=== PATIENT | female | born 1970 | race Caucasian/White ===

== ENCOUNTER 2019-11-02 01:46 | Inpatient (IN) | payer SELFPAY ==
[~2019-11-02] VITALS: Ht 160 cm; Wt 65.3 kg
[2019-11-02] VITALS (11 sets, daily range): BP systolic 103–151; BP diastolic 71–99
[2019-11-02] MEDS ORDERED: IV NORMAL SALINE 1000ML BAG 1,000 ML IV ONE (02:00)
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
[2019-11-02 02:11] LABS: BASO # 0.1 x10^3/uL (0.0-0.2); BASO % 1 % (0-3); EOS # 0.1 x10^3/uL (0.0-0.7); EOS % 1 % (0-3); HEMATOCRIT 38.7 % (36.0-47.0); HEMOGLOBIN 13.8 g/dL (12.0-15.5); LYMPH # 2.6 x10^3/uL (1.0-4.8); LYMPH % 24 % (24-48); MEAN CORPUSCULAR HEMOGLOBIN 32 pg (25-35); MEAN CORPUSCULAR HGB CONC 36 g/dL (31-37); MEAN CORPUSCULAR VOLUME 91 fL (79-100); MONO # 0.7 x10^3/uL (0.0-1.1); MONO % 7 % (0-9); NEUT # 7.3 x10^3/uL (1.8-7.7); NEUT % 68 % (31-73); PLATELET COUNT 327 x10^3/uL (140-400); RED BLOOD COUNT 4.26 x10^6/uL (3.50-5.40); RED CELL DISTRIBUTION WIDTH 12.7 % (11.5-14.5); WHITE BLOOD COUNT 10.7 x10^3/uL (4.0-11.0)
[2019-11-02] MEDS ORDERED: MORPHINE SULFATE 4 MG/ML VIAL. IV ONE ×2 (02:15→02:30)
[2019-11-02 02:19] LABS: CALCIUM 8.3 mg/dL (8.5-10.1); CREATININE 1.2 mg/dL (0.6-1.0); GFR 48.2; POTASSIUM 3.8 mmol/L (3.5-5.1)
[2019-11-02 02:25] LABS: ALBUMIN 3.4 g/dL (3.4-5.0); TOTAL BILIRUBIN 0.2 mg/dL (0.2-1.0); TOTAL PROTEIN 6.9 g/dL (6.4-8.2)
[2019-11-02 02:33] LABS: BILIRUBIN,URINE NEGATIVE (NEG); CLARITY,URINE CLOUDY; COLOR,URINE YELLOW; NITRITE,URINE POSITIVE (NEG); PH,URINE 6.5 (<5.0-8.0); PROTEIN,URINE 100 mg/dL (NEG-TRACE); UROBILINOGEN,URINE 0.2 mg/dL (0.2 mg/dL)
[2019-11-02 02:42] LABS: SQUAMOUS EPITHELIAL CELL,UR OCC /LPF
[2019-11-02 02:43] LABS: AMORPHOUS SEDIMENT,UR PRESENT /HPF; BACTERIA,URINE MODERATE /HPF (0-FEW)
[2019-11-02 02:44] LABS: U PREG PATIENT NEGATIVE (NEG)
--- NOTE | 2019-11-02 02:45 | RAD ---
Two-view left shoulder radiographs 11/02/2019 CLINICAL HISTORY: Left shoulder pain. AP and transscapular digital radiographs of the left shoulder were obtained. There appears to be an acute fracture involving the inferior aspect of the left humeral head/neck which is displaced slightly inferiorly. The humeral head appears to be dislocated posteriorly on the transscapular view. No additional fracture is seen. IMPRESSION: Fracture dislocation of the left shoulder as discussed above. Electronically signed by: Mark Anthony Douglas MD (11/02/2019 2:43 AM) [id number]
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
[2019-11-02] MEDS ORDERED: PROPOFOL 10 MG/ML (20ML) VIAL. IV ONE (03:00)
[2019-11-02] MEDS ORDERED: cefTRIAXone IV Push 1 GM VIAL. IVP ONE (03:45)
--- NOTE | 2019-11-02 04:23 | RAD ---
Two-view left shoulder radiographs 11/02/2019 CLINICAL HISTORY: Post reduction of a left shoulder dislocation. AP and transscapular digital radiographs left shoulder were obtained. Comparison study is dated earlier the same day at 0200 hours. The previously noted posterior dislocation of the left shoulder has been reduced. No fracture is seen. The questionable fracture of the inferior left humeral head seen on the previous study appears to have been artifactual. Mild degenerative changes are seen involving left AC joint. IMPRESSION: Interval reduction of the left shoulder as discussed above. No fracture is seen. Electronically signed by: Mark Anthony Douglas MD (11/02/2019 4:20 AM) [id number]
--- NOTE | 2019-11-02 04:42 | EKG ---
[facility] [address] [place] [address] Test Date: 2019-11-02 Test Time: 01:52:26 Pat Name: RADHA RUBALCAVA Department: Room: Gender: F Tree Surgeon Helper: : 1970 Requested By: JANEL PALOMO Order Number: [id number] Reading MD: Measurements Intervals Tiro Rate: 92 P: 57 ME: 172 QRS: 62 QRSD: 84 T: 58 QT: 340 QTc: 425 Interpretive Statements SINUS RHYTHM NO SPECIFIC ECG ABNORMALITIES RI6.01 No previous ECG available for comparison
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
[2019-11-02] MEDS ORDERED: HYDROcodone/APAP 5/325MG 1 TAB TABLET PO PRN ×2 (10:45→15:30)
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
[2019-11-02] MEDS ORDERED: ACETAMINOPHEN 325 MG TABLET. PO PRN (11:15)
[2019-11-02] MEDS ORDERED: 0.9 % SODIUM CHLORIDE 10 ML DISP.SYRIN. IV PRN (11:15)
[2019-11-02] MEDS ORDERED: guaiFENesin ORAL 200 MG/10 ML LIQUID. PO PRN (11:15)
[2019-11-02] MEDS ORDERED: DOCUSATE SODIUM 100 MG CAPSULE. PO PRN (11:15)
[2019-11-02] MEDS ORDERED: MAG HYDROX/ALUMINUM HYD/SIMETH 30 ML ORAL.SUSP PO PRN (11:15)
--- NOTE | 2019-11-02 11:31 | EKG ---
[facility] [address] [place] [address] Test Date: 2019-11-02 Test Time: 11:27:50 Pat Name: RADHA RUBALCAVA Department: Room: 102 1 Gender: F Wool Presser: EMILI : 1970 Requested By: GARTH ROSAS Order Number: [id number] Reading MD: Measurements Intervals [place] Rate: 86 P: 60 PA: 182 QRS: 63 QRSD: 80 T: 57 QT: 384 QTc: 463 Interpretive Statements SINUS RHYTHM OTHERWISE NORMAL ECG RI6.02 Compared to ECG 11/02/2019 01:52:26 No significant changes
[2019-11-02] MEDS ORDERED: MULTIVIT INFUSN,ADULT 4,VIT K 10 ML, THIAMINE INJ 100 MG, FOLIC ACID INJ 1 MG in IV NOR... IV ONE (12:00)
[2019-11-02] MEDS ORDERED: PANTOPRAZOLE IV PUSH 40 MG VIAL. IVP SCH (12:00)
--- NOTE | 2019-11-02 12:03 | NUR ---
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
--- NOTE | 2019-11-02 12:41 | PDOC1 ---
History and Physical Date of Admission Date of Admission DATE: 11/02/19 TIME: 12:20 Identification/Chief Complaint Chief Complaint ELECTROCUTION Problems: (1) Closed dislocation of humerus (2) Electrocution (3) Burn NOS finger w/ thumb (4) UTI (lower urinary tract infection) Source Source: Chart review, Patient History of Present Illness History of Present Illness 49 year old female with no significant PMHx presents with the chief complaint of right thumb pain and left shoulder pain. patient states prior to arrival she was electrocuted. she had grabbed her wood burning/engraving tool that is plug into the electrical sock and it shocked her. Device was made from an old microwave that has 2 wires coming off and the ends that are attached to auto jumper clamps. She state the silver ring on her right thumb came into contact the metal jumper clamp. Patient hand a ring on her right thumb that was burnt off. Patient has circumferential wound of her proximal right thumb. Patient is also complaining of left shoulder pain-- she states she can not move her left shoulder. Per EMS history patient has positive LOC and family performed 3 chest compressions. heavy alcohol intake by hx patient admitted to ICU. at bedside as well. burn center called and no further recommendations. patient currently asking to eat food. concern for UTI and started on Rocephin. shoulder dislocated and reduced in ED. Past Medical History Past Medical History reviewed and denies Past Surgical History Past Surgical History: No pertinent history Family History Family History: Hypertension, Family History Unknown Social History Smoke: No ALCOHOL: none Drugs: None Current Problem List Problem List Problems Medical Problems: (1) Burn NOS finger w/ thumb Status: Acute (2) Closed dislocation of humerus Status: Acute (3) Electrocution Status: Acute (4) Shoulder pain, left Status: Acute (5) UTI (lower urinary tract infection) Status: Acute Current Medications Current Medications Current Medications Sodium Chloride 1,000 ml @ 1,000 mls/hr 1X ONCE IV Last administered on 11/02/19at 02:04; Start 11/02/19 at 02:00; Stop 11/02/19 at 02:59; Status DC Morphine Sulfate (Morphine Sulfate) 4 mg 1X ONCE IV Last administered on 11/02/19at 02:14; Start 11/02/19 at 02:15; Stop 11/02/19 at 02:16; Status DC Lorazepam (Ativan Inj) 1 mg 1X ONCE IVP Last administered on 11/02/19at 02:32; Start 11/02/19 at 02:30; Stop 11/02/19 at 02:33; Status DC Morphine Sulfate (Morphine Sulfate) 4 mg 1X ONCE IV Last administered on 11/02/19at 02:32; Start 11/02/19 at 02:30; Stop 11/02/19 at 02:33; Status DC Propofol (Diprivan) 60 mg 1X ONCE IV Last administered on 11/02/19at 03:24; Start 11/02/19 at 03:00; Stop 11/02/19 at 03:03; Status DC Ceftriaxone Sodium (Rocephin) 1 gm 1X ONCE IVP Last administered on 11/02/19at 04:04; Start 11/02/19 at 03:45; Stop 11/02/19 at 03:46; Status DC Acetaminophen/ Hydrocodone Bitart (Lortab 5/325) 1 tab PRN Q4HRS PRN PO PAIN Last administered on 11/02/19at 11:42; Start 11/02/19 at 10:45 Ceftriaxone Sodium (Rocephin) 1 gm Q24H IVP ; Start 11/03/19 at 09:00 Lactobacillus Rhamnosus (Culturelle) 1 cap BID PO ; Start 11/02/19 at 21:00 Sodium Chloride (Normal Saline Flush) 3 ml QSHIFT PRN IV AFTER MEDS AND BLOOD DRAWS; Start 11/02/19 at 11:15 Multivitamins 10 ml/Thiamine HCl 100 mg/Folic Acid 1 mg/Sodium Chloride 1,011.2 ml @ 125 mls/ hr 1X ONCE IV Last administered on 11/02/19at 11:48; Start 11/02/19 at 12:00; Stop 11/02/19 at 20:05 Acetaminophen (Tylenol) 650 mg PRN Q4HRS PRN PO TEMP OVER 100.4F OR MILD PAIN; Start 11/02/19 at 11:15 Al Hydroxide/Mg Hydroxide (Mylanta Plus Xs) 30 ml PRN DAILY PRN PO HEARTBURN / GAS; Start 11/02/19 at 11:15 Docusate Sodium (Colace) 100 mg PRN BID PRN PO HARD STOOLS; Start 11/02/19 at 11:15 Albuterol/ Ipratropium (Duoneb) 3 ml Q4H NEB ; Start 11/02/19 at 11:15 Guaifenesin (Robitussin) 200 mg PRN Q4HRS PRN PO COUGH; Start 11/02/19 at 11:15 Enoxaparin Sodium (Lovenox 40mg Syringe) 40 mg Q24H SQ ; Start 11/02/19 at 12:00 Pantoprazole Sodium (PROTONIX VIAL for IV PUSH) 40 mg DAILYAC IVP ; Start 11/02/19 at 12:00 Multivitamins 10 ml/Thiamine HCl 100 mg/Folic Acid 1 mg/Sodium Chloride 1,011.2 ml @ 100 mls/ hr DAILY IV ; Start 11/03/19 at 09:00; Stop 11/06/19 at 19:07 Multivitamins (Thera M Plus) 1 tab DAILY PO ; Start 11/07/19 at 09:00 Folic Acid (Folic Acid) 1 mg DAILY PO ; Start 11/07/19 at 09:00 Thiamine Mononitrate (Vitamin B-1) 100 mg DAILY PO ; Start 11/07/19 at 09:00 Lorazepam (Ativan) 4 mg PRN Q1HR PRN PO For CIWA 8-14; Start 11/02/19 at 11:15 Lorazepam (Ativan) 8 mg PRN Q1HR PRN PO For CIWA 15 or greater; Start 11/02/19 at 11:15 Lorazepam (Ativan Inj) 2 mg PRN Q1HR PRN IV For CIWA 8-14; Start 11/02/19 at 11:15 Lorazepam (Ativan Inj) 4 mg PRN Q1HR PRN IV For CIWA 15 or greater; Start 11/02/19 at 11:15 Lorazepam (Ativan Inj) 2 mg PRN Q15MIN PRN IV SEE COMMENTS; Start 11/02/19 at 11:15 Lorazepam (Ativan Inj) 4 mg PRN Q15MIN PRN IV SEE COMMENTS; Start 11/02/19 at 11:15 Active Scripts Active No Active Prescriptions or Reported Medications Allergies Allergies: Coded Allergies: No Known Drug Allergies (Unverified , 05/06/13) ROS Review of System per HPI otherwise negative Physical Exam Physical Exam GENERAL: No apparent distress. Alert and oriented. HEENT: Head normocephalic, atraumatic. NECK: Supple LUNGS: Clear to auscultation. HEART: RRR, S1, S2 present, pulses intact ABDOMEN: Soft, positive bowel sounds. EXTREMITIES: left shoulder in sling NEUROLOGIC: Normal speech, normal tone PSYCHIATRIC: Normal affect, normal mood. SKIN: right circumferential wound around thumb Vitals Vitals Vital Signs Date Time Temp Pulse Resp B/P (MAP) Pulse Ox O2 Delivery O2 Flow Rate FiO2 11/02/19 11:42 22 94 Room Air 11/02/19 10:00 80 111/71 (84) 11/02/19 09:00 2.0 11/02/19 07:45 97.6 97.6 Labs Labs Laboratory Tests Test 11/02/19 02:03 11/02/19 02:25 White Blood Count 10.7 x10^3/uL (4.0-11.0) Red Blood Count 4.26 x10^6/uL (3.50-5.40) Hemoglobin 13.8 g/dL (12.0-15.5) Hematocrit 38.7 % (36.0-47.0) Mean Corpuscular Volume 91 fL (79-100) Mean Corpuscular Hemoglobin 32 pg (25-35) Mean Corpuscular Hemoglobin Concent 36 g/dL (31-37) Red Cell Distribution Width 12.7 % (11.5-14.5) Platelet Count 327 x10^3/uL (140-400) Neutrophils (%) (Auto) 68 % (31-73) Lymphocytes (%) (Auto) 24 % (24-48) Monocytes (%) (Auto) 7 % (0-9) Eosinophils (%) (Auto) 1 % (0-3) Basophils (%) (Auto) 1 % (0-3) Neutrophils # (Auto) 7.3 x10^3/uL (1.8-7.7) Lymphocytes # (Auto) 2.6 x10^3/uL (1.0-4.8) Monocytes # (Auto) 0.7 x10^3/uL (0.0-1.1) Eosinophils # (Auto) 0.1 x10^3/uL (0.0-0.7) Basophils # (Auto) 0.1 x10^3/uL (0.0-0.2) Sodium Level 140 mmol/L (136-145) Potassium Level 3.8 mmol/L (3.5-5.1) Chloride Level 106 mmol/L (98-107) Carbon Dioxide Level 25 mmol/L (21-32) Anion Gap 9 (6-14) Blood Urea Nitrogen 16 mg/dL (7-20) Creatinine 1.2 mg/dL (0.6-1.0) Estimated GFR (Cockcroft-Gault) 48.2 BUN/Creatinine Ratio 13 (6-20) Glucose Level 117 mg/dL (70-99) Calcium Level 8.3 mg/dL (8.5-10.1) Total Bilirubin 0.2 mg/dL (0.2-1.0) Aspartate Amino Transf (AST/SGOT) 29 U/L (15-37) Alanine Aminotransferase (ALT/SGPT) 47 U/L (14-59) Alkaline Phosphatase 97 U/L (46-116) Creatine Kinase 154 U/L (26-192) Myoglobin 506 ng/mL (9-82) Troponin I Quantitative < 0.017 ng/mL (0.000-0.055) Total Protein 6.9 g/dL (6.4-8.2) Albumin 3.4 g/dL (3.4-5.0) Albumin/Globulin Ratio 1.0 (1.0-1.7) Ethyl Alcohol Level < 10 mg/dL (0-10) Urine Collection Type U cath Urine Color Yellow Urine Clarity Cloudy Urine pH 6.5 (<5.0-8.0) Urine Specific [place] 1.025 (1.000-1.030) Urine Protein 100 mg/dL (NEG-TRACE) Urine Glucose (UA) Negative mg/dL (NEG) Urine Ketones (Stick) Negative mg/dL (NEG) Urine Blood Small (NEG) Urine Nitrite Positive (NEG) Urine Bilirubin Negative (NEG) Urine Urobilinogen Dipstick 0.2 mg/dL (0.2 mg/dL) Urine Leukocyte Esterase Small (NEG) Urine RBC 3-5 /HPF (0-2) Urine WBC 5-10 /HPF (0-4) Urine Squamous Epithelial Cells Occ /LPF Urine Amorphous Sediment Present /HPF Urine Bacteria Moderate /HPF (0-FEW) Urine Mucus Slight /LPF Urine Test Negative (NEG) Laboratory Tests Test 11/02/19 02:03 11/02/19 02:25 White Blood Count 10.7 x10^3/uL (4.0-11.0) Red Blood Count 4.26 x10^6/uL (3.50-5.40) Hemoglobin 13.8 g/dL (12.0-15.5) Hematocrit 38.7 % (36.0-47.0) Mean Corpuscular Volume 91 fL (79-100) Mean Corpuscular Hemoglobin 32 pg (25-35) Mean Corpuscular Hemoglobin Concent 36 g/dL (31-37) Red Cell Distribution Width 12.7 % (11.5-14.5) Platelet Count 327 x10^3/uL (140-400) Neutrophils (%) (Auto) 68 % (31-73) Lymphocytes (%) (Auto) 24 % (24-48) Monocytes (%) (Auto) 7 % (0-9) Eosinophils (%) (Auto) 1 % (0-3) Basophils (%) (Auto) 1 % (0-3) Neutrophils # (Auto) 7.3 x10^3/uL (1.8-7.7) Lymphocytes # (Auto) 2.6 x10^3/uL (1.0-4.8) Monocytes # (Auto) 0.7 x10^3/uL (0.0-1.1) Eosinophils # (Auto) 0.1 x10^3/uL (0.0-0.7) Basophils # (Auto) 0.1 x10^3/uL (0.0-0.2) Sodium Level 140 mmol/L (136-145) Potassium Level 3.8 mmol/L (3.5-5.1) Chloride Level 106 mmol/L (98-107) Carbon Dioxide Level 25 mmol/L (21-32) Anion Gap 9 (6-14) Blood Urea Nitrogen 16 mg/dL (7-20) Creatinine 1.2 mg/dL (0.6-1.0) Estimated GFR (Cockcroft-Gault) 48.2 BUN/Creatinine Ratio 13 (6-20) Glucose Level 117 mg/dL (70-99) Calcium Level 8.3 mg/dL (8.5-10.1) Total Bilirubin 0.2 mg/dL (0.2-1.0) Aspartate Amino Transf (AST/SGOT) 29 U/L (15-37) Alanine Aminotransferase (ALT/SGPT) 47 U/L (14-59) Alkaline Phosphatase 97 U/L (46-116) Creatine Kinase 154 U/L (26-192) Myoglobin 506 ng/mL (9-82) Troponin I Quantitative < 0.017 ng/mL (0.000-0.055) Total Protein 6.9 g/dL (6.4-8.2) Albumin 3.4 g/dL (3.4-5.0) Albumin/Globulin Ratio 1.0 (1.0-1.7) Ethyl Alcohol Level < 10 mg/dL (0-10) Urine Collection Type U cath Urine Color Yellow Urine Clarity Cloudy Urine pH 6.5 (<5.0-8.0) Urine Specific [place] 1.025 (1.000-1.030) Urine Protein 100 mg/dL (NEG-TRACE) Urine Glucose (UA) Negative mg/dL (NEG) Urine Ketones (Stick) Negative mg/dL (NEG) Urine Blood Small (NEG) Urine Nitrite Positive (NEG) Urine Bilirubin Negative (NEG) Urine Urobilinogen Dipstick 0.2 mg/dL (0.2 mg/dL) Urine Leukocyte Esterase Small (NEG) Urine RBC 3-5 /HPF (0-2) Urine WBC 5-10 /HPF (0-4) Urine Squamous Epithelial Cells Occ /LPF Urine Amorphous Sediment Present /HPF Urine Bacteria Moderate /HPF (0-FEW) Urine Mucus Slight /LPF Urine Test Negative (NEG) VTE Prophylaxis Ordered VTE Prophylaxis Devices: Yes VTE Pharmacological Prophylaxi: Yes Assessment/Plan Assessment/Plan ASSESSMENT Trauma WITH electrocution shoulder fracture reduced in ER -acute fracture involving the inferior aspect of the left humeral head/neck which is displaced slightly inferiorly. The humeral head appears to be dislocated posteriorly on the transscapular view. No additional fracture is seen. hx alcohol abuse Suspected UTI PLAN can transfer out of ICU to floor bed wound care consulted trauma consulted, no further intervention awaiting ortho eval IV rocephin, await urine culture [facility] protocol dvt prophylaxis regular diet full code Justicifation of Admission Dx: Justifications for Admission: Justification of Admission Dx: Yes JANEY WOOD MD Nov 02, 2019 12:41
--- NOTE | 2019-11-02 12:55 | PDOC2 ---
NEUROLOGY CONSULT Date of Admission Date of Admission DATE: 11/02/19 TIME: 12:49 Reason for Consult Reason for Consult: Electrocution Referring Physician Referring Physician: Dr. Mirza Source Source: Chart review, Patient History of Present Illness History of Present Illness The patient is a 49-year-old right-handed female who was demonstrating a makeshift toy assembler wood when she electrocute herrself. Apparently this was made out of old microwave parts. She was unconscious for several minutes. Her friends that she was demonstrating it to gave her some chest compressions. She broke and dislocated her left humerus. There is no prior history of stroke, seizure, or head injury. She feels sore all over. She denies any focal weakness or numbness. Past Medical History Heme/Onc: Cancer (Cervical) Past Surgical History Past Surgical History: Other ( cervical cancer removal) Family History Family History: CAD Social History Social History Single, has a roommate, drinks alcohol, smokes cigarettes, uses marijuana, works reconstructing [employer] Current Medications Current Medications Current Medications Sodium Chloride 1,000 ml @ 1,000 mls/hr 1X ONCE IV Last administered on 11/02/19at 02:04; Start 11/02/19 at 02:00; Stop 11/02/19 at 02:59; Status DC Morphine Sulfate (Morphine Sulfate) 4 mg 1X ONCE IV Last administered on 11/02/19at 02:14; Start 11/02/19 at 02:15; Stop 11/02/19 at 02:16; Status DC Lorazepam (Ativan Inj) 1 mg 1X ONCE IVP Last administered on 11/02/19at 02:32; Start 11/02/19 at 02:30; Stop 11/02/19 at 02:33; Status DC Morphine Sulfate (Morphine Sulfate) 4 mg 1X ONCE IV Last administered on 11/02/19at 02:32; Start 11/02/19 at 02:30; Stop 11/02/19 at 02:33; Status DC Propofol (Diprivan) 60 mg 1X ONCE IV Last administered on 11/02/19at 03:24; Start 11/02/19 at 03:00; Stop 11/02/19 at 03:03; Status DC Ceftriaxone Sodium (Rocephin) 1 gm 1X ONCE IVP Last administered on 11/02/19at 04:04; Start 11/02/19 at 03:45; Stop 11/02/19 at 03:46; Status DC Acetaminophen/ Hydrocodone Bitart (Lortab 5/325) 1 tab PRN Q4HRS PRN PO PAIN Last administered on 11/02/19at 11:42; Start 11/02/19 at 10:45 Ceftriaxone Sodium (Rocephin) 1 gm Q24H IVP ; Start 11/03/19 at 09:00 Lactobacillus Rhamnosus (Culturelle) 1 cap BID PO ; Start 11/02/19 at 21:00 Sodium Chloride (Normal Saline Flush) 3 ml QSHIFT PRN IV AFTER MEDS AND BLOOD DRAWS; Start 11/02/19 at 11:15 Multivitamins 10 ml/Thiamine HCl 100 mg/Folic Acid 1 mg/Sodium Chloride 1,011.2 ml @ 125 mls/ hr 1X ONCE IV Last administered on 11/02/19at 11:48; Start 11/02/19 at 12:00; Stop 11/02/19 at 20:05 Acetaminophen (Tylenol) 650 mg PRN Q4HRS PRN PO TEMP OVER 100.4F OR MILD PAIN; Start 11/02/19 at 11:15 Al Hydroxide/Mg Hydroxide (Mylanta Plus Xs) 30 ml PRN DAILY PRN PO HEARTBURN / GAS; Start 11/02/19 at 11:15 Docusate Sodium (Colace) 100 mg PRN BID PRN PO HARD STOOLS; Start 11/02/19 at 11:15 Albuterol/ Ipratropium (Duoneb) 3 ml Q4H NEB ; Start 11/02/19 at 11:15 Guaifenesin (Robitussin) 200 mg PRN Q4HRS PRN PO COUGH; Start 11/02/19 at 11:15 Enoxaparin Sodium (Lovenox 40mg Syringe) 40 mg Q24H SQ ; Start 11/02/19 at 12:00 Pantoprazole Sodium (PROTONIX VIAL for IV PUSH) 40 mg DAILYAC IVP ; Start 11/02/19 at 12:00; Stop 11/02/19 at 12:29; Status DC Multivitamins 10 ml/Thiamine HCl 100 mg/Folic Acid 1 mg/Sodium Chloride 1,011.2 ml @ 100 mls/ hr DAILY IV ; Start 11/03/19 at 09:00; Stop 11/06/19 at 19:07 Multivitamins (Thera M Plus) 1 tab DAILY PO ; Start 11/07/19 at 09:00 Folic Acid (Folic Acid) 1 mg DAILY PO ; Start 11/07/19 at 09:00 Thiamine Mononitrate (Vitamin B-1) 100 mg DAILY PO ; Start 11/07/19 at 09:00 Lorazepam (Ativan) 4 mg PRN Q1HR PRN PO For CIWA 8-14; Start 11/02/19 at 11:15 Lorazepam (Ativan) 8 mg PRN Q1HR PRN PO For CIWA 15 or greater; Start 11/02/19 at 11:15 Lorazepam (Ativan Inj) 2 mg PRN Q1HR PRN IV For CIWA 8-14; Start 11/02/19 at 11:15 Lorazepam (Ativan Inj) 4 mg PRN Q1HR PRN IV For CIWA 15 or greater; Start 11/02/19 at 11:15 Lorazepam (Ativan Inj) 2 mg PRN Q15MIN PRN IV SEE COMMENTS; Start 11/02/19 at 11:15 Lorazepam (Ativan Inj) 4 mg PRN Q15MIN PRN IV SEE COMMENTS; Start 11/02/19 at 11:15 Pantoprazole Sodium (Protonix) 40 mg DAILYAC PO ; Start 11/03/19 at 07:30 Lidocaine (Lidoderm) 1 patch DAILY TD ; Start 11/03/19 at 13:00; Status UNV Miscellaneous (Lidoderm Patch Removal) 1 ea QHS MC ; Start 11/02/19 at 21:00; Status UNV Hydromorphone HCl (Dilaudid) 0.6 mg PRN Q3HRS PRN IVP PAIN; Start 11/02/19 at 12:45; Status UNV Active Scripts Active No Active Prescriptions or Reported Medications Allergies Allergies: Coded Allergies: No Known Drug Allergies (Unverified , 05/06/13) ROS Review of System Negative for fever, chills, weight loss, shortness of breath, chest pain, indigestion, hematochezia, melena, and dysuria. Full 14-point review of systems is negative. Physical Exam Physical Examination General: Well-developed, well-nourished white female in no acute distress HEENT: Normocephalic andatraumatic. Tympanic membranes clear.Temporal ar teriespulsatile and nontender.Fundoscopic exam unremarkable Neck: Supple without bruit, no meningismus Musculoskeletal: Stability:see neurologic. Gait exam:see neurologic. Tone:see neurologic.Strength:see neurologic. Neurological: Mental Status:intact, orientation, memory, attention span/concentration, language, fund of knowledge normal. Cranial Nerves:Pupils equal and reactive to light, extraocular movements areintact, visual mccall are full to confrontation. Facial sensation is normal. There is no facial asymmetry. Vestibulo-ocular reflex is intact. Palate elevates and tongue protrudes in midline. All other cranial related problems are negative except as mentioned before.Reflexes:2+ and symmetric with flexor plantar responses. Motor: Left shoulder is in a mobilizer, right arm limited by IV, otherwise 5/5 strength with normal tone and bulk. Coordination:Finger-nose finger and [id number] testing are normal given above listed limitations. Rapid alternating movements and fine finger movements are intact. Gait: not tested. Sensory:Normal pinprick, vibration, light touch, proprioception. Vitals VITALS Vital Signs Date Time Temp Pulse Resp B/P (MAP) Pulse Ox O2 Delivery O2 Flow Rate FiO2 11/02/19 12:43 16 94 Room Air 11/02/19 10:00 80 111/71 (84) 11/02/19 09:00 2.0 11/02/19 07:45 97.6 97.6 Labs Labs Laboratory Tests Test 11/02/19 02:03 11/02/19 02:25 White Blood Count 10.7 x10^3/uL (4.0-11.0) Red Blood Count 4.26 x10^6/uL (3.50-5.40) Hemoglobin 13.8 g/dL (12.0-15.5) Hematocrit 38.7 % (36.0-47.0) Mean Corpuscular Volume 91 fL (79-100) Mean Corpuscular Hemoglobin 32 pg (25-35) Mean Corpuscular Hemoglobin Concent 36 g/dL (31-37) Red Cell Distribution Width 12.7 % (11.5-14.5) Platelet Count 327 x10^3/uL (140-400) Neutrophils (%) (Auto) 68 % (31-73) Lymphocytes (%) (Auto) 24 % (24-48) Monocytes (%) (Auto) 7 % (0-9) Eosinophils (%) (Auto) 1 % (0-3) Basophils (%) (Auto) 1 % (0-3) Neutrophils # (Auto) 7.3 x10^3/uL (1.8-7.7) Lymphocytes # (Auto) 2.6 x10^3/uL (1.0-4.8) Monocytes # (Auto) 0.7 x10^3/uL (0.0-1.1) Eosinophils # (Auto) 0.1 x10^3/uL (0.0-0.7) Basophils # (Auto) 0.1 x10^3/uL (0.0-0.2) Sodium Level 140 mmol/L (136-145) Potassium Level 3.8 mmol/L (3.5-5.1) Chloride Level 106 mmol/L (98-107) Carbon Dioxide Level 25 mmol/L (21-32) Anion Gap 9 (6-14) Blood Urea Nitrogen 16 mg/dL (7-20) Creatinine 1.2 mg/dL (0.6-1.0) Estimated GFR (Cockcroft-Gault) 48.2 BUN/Creatinine Ratio 13 (6-20) Glucose Level 117 mg/dL (70-99) Calcium Level 8.3 mg/dL (8.5-10.1) Total Bilirubin 0.2 mg/dL (0.2-1.0) Aspartate Amino Transf (AST/SGOT) 29 U/L (15-37) Alanine Aminotransferase (ALT/SGPT) 47 U/L (14-59) Alkaline Phosphatase 97 U/L (46-116) Creatine Kinase 154 U/L (26-192) Myoglobin 506 ng/mL (9-82) Troponin I Quantitative < 0.017 ng/mL (0.000-0.055) Total Protein 6.9 g/dL (6.4-8.2) Albumin 3.4 g/dL (3.4-5.0) Albumin/Globulin Ratio 1.0 (1.0-1.7) Ethyl Alcohol Level < 10 mg/dL (0-10) Urine Collection Type U cath Urine Color Yellow Urine Clarity Cloudy Urine pH 6.5 (<5.0-8.0) Urine Specific [place] 1.025 (1.000-1.030) Urine Protein 100 mg/dL (NEG-TRACE) Urine Glucose (UA) Negative mg/dL (NEG) Urine Ketones (Stick) Negative mg/dL (NEG) Urine Blood Small (NEG) Urine Nitrite Positive (NEG) Urine Bilirubin Negative (NEG) Urine Urobilinogen Dipstick 0.2 mg/dL (0.2 mg/dL) Urine Leukocyte Esterase Small (NEG) Urine RBC 3-5 /HPF (0-2) Urine WBC 5-10 /HPF (0-4) Urine Squamous Epithelial Cells Occ /LPF Urine Amorphous Sediment Present /HPF Urine Bacteria Moderate /HPF (0-FEW) Urine Mucus Slight /LPF Urine Test Negative (NEG) Laboratory Tests Test 11/02/19 02:03 11/02/19 02:25 White Blood Count 10.7 x10^3/uL (4.0-11.0) Red Blood Count 4.26 x10^6/uL (3.50-5.40) Hemoglobin 13.8 g/dL (12.0-15.5) Hematocrit 38.7 % (36.0-47.0) Mean Corpuscular Volume 91 fL (79-100) Mean Corpuscular Hemoglobin 32 pg (25-35) Mean Corpuscular Hemoglobin Concent 36 g/dL (31-37) Red Cell Distribution Width 12.7 % (11.5-14.5) Platelet Count 327 x10^3/uL (140-400) Neutrophils (%) (Auto) 68 % (31-73) Lymphocytes (%) (Auto) 24 % (24-48) Monocytes (%) (Auto) 7 % (0-9) Eosinophils (%) (Auto) 1 % (0-3) Basophils (%) (Auto) 1 % (0-3) Neutrophils # (Auto) 7.3 x10^3/uL (1.8-7.7) Lymphocytes # (Auto) 2.6 x10^3/uL (1.0-4.8) Monocytes # (Auto) 0.7 x10^3/uL (0.0-1.1) Eosinophils # (Auto) 0.1 x10^3/uL (0.0-0.7) Basophils # (Auto) 0.1 x10^3/uL (0.0-0.2) Sodium Level 140 mmol/L (136-145) Potassium Level 3.8 mmol/L (3.5-5.1) Chloride Level 106 mmol/L (98-107) Carbon Dioxide Level 25 mmol/L (21-32) Anion Gap 9 (6-14) Blood Urea Nitrogen 16 mg/dL (7-20) Creatinine 1.2 mg/dL (0.6-1.0) Estimated GFR (Cockcroft-Gault) 48.2 BUN/Creatinine Ratio 13 (6-20) Glucose Level 117 mg/dL (70-99) Calcium Level 8.3 mg/dL (8.5-10.1) Total Bilirubin 0.2 mg/dL (0.2-1.0) Aspartate Amino Transf (AST/SGOT) 29 U/L (15-37) Alanine Aminotransferase (ALT/SGPT) 47 U/L (14-59) Alkaline Phosphatase 97 U/L (46-116) Creatine Kinase 154 U/L (26-192) Myoglobin 506 ng/mL (9-82) Troponin I Quantitative < 0.017 ng/mL (0.000-0.055) Total Protein 6.9 g/dL (6.4-8.2) Albumin 3.4 g/dL (3.4-5.0) Albumin/Globulin Ratio 1.0 (1.0-1.7) Ethyl Alcohol Level < 10 mg/dL (0-10) Urine Collection Type U cath Urine Color Yellow Urine Clarity Cloudy Urine pH 6.5 (<5.0-8.0) Urine Specific [place] 1.025 (1.000-1.030) Urine Protein 100 mg/dL (NEG-TRACE) Urine Glucose (UA) Negative mg/dL (NEG) Urine Ketones (Stick) Negative mg/dL (NEG) Urine Blood Small (NEG) Urine Nitrite Positive (NEG) Urine Bilirubin Negative (NEG) Urine Urobilinogen Dipstick 0.2 mg/dL (0.2 mg/dL) Urine Leukocyte Esterase Small (NEG) Urine RBC 3-5 /HPF (0-2) Urine WBC 5-10 /HPF (0-4) Urine Squamous Epithelial Cells Occ /LPF Urine Amorphous Sediment Present /HPF Urine Bacteria Moderate /HPF (0-FEW) Urine Mucus Slight /LPF Urine Test Negative (NEG) Assessment/Plan Assessment/Plan Impression: Electrical injury, non-focal bedside examination as limited by the shoulder immobilizer and the left arm and the right arm intravenous line. Recommendations: Observation, hold on additional studies. Thank you for letting me help with the patient care. LORENZO FLEMING MD Nov 02, 2019 12:55
[2019-11-02] MEDS: HYDROmorphone 2 MG/ML VIAL IVP PRN ×2 (12:57→17:51)
[2019-11-02 14:00] LABS: BARBITURATES NEG (NEG); BENZODIAZEPINES NEG (NEG); CANNABINOIDS NEG (NEG); COCAINE NEG (NEG); METHADONE NEG (NEG); OPIATES POS (NEG); PHENCYCLIDINE NEG (NEG)
[2019-11-02 14:03] LABS: AMPHETAMINE/METHAMPHETAMINE POS (NEG)
--- NOTE | 2019-11-02 14:11 | NUR ---
When this RN asked pt admission questions, she denied any illegal drug use. Then when a physician came in she admitted to sometimes smoking marijuana. Then when the nurse practitioner for Cardiology came in she said she smokes meth sometimes and the last time was yesterday.
[2019-11-02] MEDS ORDERED: ONDANSETRON PF 4 MG/2 ML VIAL. IVP PRN (14:30)
[2019-11-02] MEDS: LIDOCAINE (700MG/PATCH) PATCH. TD SCH (14:33)
[2019-11-02] MEDS: ENOXAPARIN 40 MG/0.4 ML SYRINGE. SQ SCH (14:34)
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
--- NOTE | 2019-11-02 15:34 | NUR ---
SS following for discharge planning. SS reviewed pt chart and discussed with pt RN. Pt is from home and is currently on room air. Pt on IV Rocephin. Pt self pay pt. PT/OT ordered. OT recommending home with assistance. SS will continue to follow for discharge planning.
[2019-11-02] MEDS: oxyCODONE/APAP 5/325 1 TAB TABLET PO PRN ×2 (15:38→22:43)
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
[2019-11-02] MEDS: IPRATRPIUM/ALBUTEROL 0.5/2.5MG 3 ML NEBU. NEB SCH ×3 (16:45→23:15)
--- NOTE | 2019-11-02 17:22 | NUR ---
PT TRANSFERRED TO ROOM 664, ALL BELONGINGS SENT WITH PT
[2019-11-02] MEDS: MUPIROCIN 2 % TOPICAL CREAM 30GM TUBE. TP SCH (18:09)
--- NOTE | 2019-11-02 18:53 | RAD ---
INDICATION: Reason: ELECTROCUTION / Spl. Instructions: / History: COMPARISON: December 13, 2013 FINDINGS: Single view of chest obtained. Hypoexpanded exam. There is some mild opacities at the bilateral lung bases. Elevation of the right humerus with degenerative changes which can be seen with chronic rotator cuff tear. The cardiac silhouette unremarkable. IMPRESSION: * Focal opacities at the bilateral lung bases. This can be seen with atelectasis or infiltrate. Another possible cause would include aspiration. Electronically signed by: Patrick العلي MD (11/02/2019 6:50 PM) [id number]
[2019-11-02] MEDS ORDERED: PATCH REMOVAL. MC SCH (21:00)
--- NOTE | 2019-11-02 21:00 | NUR ---
NURSING NOTE Pt had said earlier in the shift that she wanted to shower. Explained to pt, that it would be a little while until that could be done, pt agreed, but was very adamant about a shower. At 2100, pt walked to her doorway and demanded to have a shower, said her belongings were brought to the ER and that someone needed to get them now. Belongings retreived, pt assisted to the shower, bandage on left hand covered, but pt had removed bandage on right thumb, and did not want dressing replaced because she said it felt like the prior dressing was too tight and her finger was too swollen. Assisted pt to removed immobilizer from left arm and instructed pt to not use her left arm for anything while it was off. Pt vu. Pt showered/washed self in bathroom. Pt assisted back to bed, pt brushed teeth, then asked for snacks/drinks and something for pain and sleep. Pt given medications, will monitor.
[2019-11-02] MEDS: LACTOBACILLUS RHAMNOSUS GG 1 CAPSULE. PO SCH (22:43)
[2019-11-03 00:30] VITALS: BP 134/84
[2019-11-03] MEDS: IPRATRPIUM/ALBUTEROL 0.5/2.5MG 3 ML NEBU. NEB SCH ×3 (00:39→11:11)
[2019-11-03 03:40] VITALS: BP 130/76
[2019-11-03 04:26] LABS: BASO % 0 % (0-3); EOS % 0 % (0-3); HEMATOCRIT 36.7 % (36.0-47.0); HEMOGLOBIN 12.5 g/dL (12.0-15.5); LYMPH # 1.8 x10^3/uL (1.0-4.8); LYMPH % 17 % (24-48); MEAN CORPUSCULAR HEMOGLOBIN 32 pg (25-35); MEAN CORPUSCULAR HGB CONC 34 g/dL (31-37); MEAN CORPUSCULAR VOLUME 92 fL (79-100); MONO # 0.7 x10^3/uL (0.0-1.1); MONO % 7 % (0-9); NEUT # 8.1 x10^3/uL (1.8-7.7); NEUT % 76 % (31-73); PLATELET COUNT 283 x10^3/uL (140-400); RED BLOOD COUNT 3.99 x10^6/uL (3.50-5.40); RED CELL DISTRIBUTION WIDTH 12.9 % (11.5-14.5); WHITE BLOOD COUNT 10.7 x10^3/uL (4.0-11.0)
[2019-11-03 04:46] LABS: ALBUMIN 2.9 g/dL (3.4-5.0); ALBUMIN/GLOBULIN RATIO 0.9 (1.0-1.7); CREATININE 0.9 mg/dL (0.6-1.0); GFR 67.1; POTASSIUM 3.8 mmol/L (3.5-5.1); TOTAL BILIRUBIN 0.2 mg/dL (0.2-1.0); TOTAL PROTEIN 6.2 g/dL (6.4-8.2)
[2019-11-03] MEDS: oxyCODONE/APAP 5/325 1 TAB TABLET PO PRN (06:59)
[2019-11-03] MEDS ORDERED: PANTOPRAZOLE 40 MG TABLET.DR. PO SCH (07:30)
--- NOTE | 2019-11-03 07:53 | CARD ---
MR#: [id number] Date of Study: 11/02/2019 Ordering Physician: GARTH ROSAS, Referring Physician: GARTH ROSAS, Tech: Roseann Ríos APPROVED REPORT EXAM: Two-dimensional and M-mode echocardiogram with Doppler and color Doppler. Other Information Quality : AverageHR: 74bpm INDICATION Electrocution RISK FACTORS Smoking 2D DIMENSIONS Left Atrium(2D)2.9 (1.6-4.0cm)IVSd1.0 (0.7-1.1cm) Aortic Root(2D)3.1 (2.0-3.7cm)LVDd4.0 (3.9-5.9cm) LVOT Diameter1.9 (1.8-2.4cm)PWd1.0 (0.7-1.1cm) LVDs2.5 (2.5-4.0cm)FS (%) 36.4 % SV45.9 mlLVEF(%)66.7 (>50%) Aortic Valve AoV Peak Zak.114.0cm/sAoV VTI20.3cm AO Peak GR.5.2mmHgLVOT VTI 15.53cm AO Mean GR.3mmHg Mitral Valve MV E Slitnkwj84.8cm/sMV E Peak Gr.2mmHg MV DECEL [id number] A Uuqtxuji07.5cm/s MV E Mean Gr.1mmHgE/A Ratio1.0 TDI Lateral E' P. V9.14cm/sMedial E' P. V8.37cm/s E/Lateral E'5.8E/Medial E'6.3 Tricuspid Valve TR P. Obmnebnm490jx/sRAP [id number] TR Peak Gr.94khGqRBTV79xoUd LEFT VENTRICLE The left ventricle is normal size. There is normal left ventricular wall thickness. The left ventricu lar systolic function is normal. The Ejection Fraction is 55%. There is normal LV segmental wall donavon on. Transmitral Doppler flow pattern is Grade II-pseudonormal filling dynamics. RIGHT VENTRICLE The right ventricle is normal size. There is normal right ventricular wall thickness. The right ventr icular systolic function is normal. ATRIA The left atrium size is normal. The right atrium size is normal. The interatrial septum is intact wit h no evidence for an atrial septal defect or patent foramen ovale as noted on 2-D or Doppler imaging. AORTIC VALVE The aortic valve is normal in structure and function. Doppler and Color Flow revealed no significant aortic regurgitation. There is no significant aortic valvular stenosis. Calculated aortic valve area is 1.84 cm2 with maximum pressure gradient of 5 mmHg and mean pressure gradient of 3 mmHg. MITRAL VALVE The mitral valve is normal in structure and function. There is no evidence of mitral valve prolapse. There is no mitral valve stenosis. Doppler and Color-flow revealed trace mitral regurgitation. TRICUSPID VALVE The tricuspid valve is normal in structure and function. Doppler and Color Flow revealed trace tricus pid regurgitation with an esitmated PAP of 44 mmHg. There is no tricuspid valve stenosis. GREAT VESSELS The aortic root is normal in size. PERICARDIAL EFFUSION There is no evidence of significant pericardial effusion. Critical Notification Critical Value: No <Conclusion> The left ventricular systolic function is normal. The Ejection Fraction is 55%. There is normal LV segmental wall motion. Transmitral Doppler flow pattern is Grade II-pseudonormal filling dynamics. Trace mitral regurgitation. Trace tricuspid regurgitation with an esitmated PAP of 44 mmHg. There is no evidence of significant pericardial effusion. Signed by : Devante Reed, Electronically Approved : 11/03/2019 07:52:58
[2019-11-03 08:03] VITALS: BP 137/85
[2019-11-03] MEDS: LACTOBACILLUS RHAMNOSUS GG 1 CAPSULE. PO SCH (08:52)
[2019-11-03] MEDS: MUPIROCIN 2 % TOPICAL CREAM 30GM TUBE. TP SCH (08:54)
[2019-11-03] MEDS: LIDOCAINE (700MG/PATCH) PATCH. TD SCH (08:54)
[2019-11-03] MEDS ORDERED: MULTIVIT INFUSN,ADULT 4,VIT K 10 ML, THIAMINE INJ 100 MG, FOLIC ACID INJ 1 MG in IV NOR... IV SCH (09:00)
[2019-11-03] MEDS ORDERED: cefTRIAXone IV Push 1 GM VIAL. IVP SCH (09:00)
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
--- NOTE | 2019-11-03 10:09 | RAD ---
EXAM: CT Abdomen and Pelvis without IV contrast CLINICAL HISTORY: Lower abdominal pain COMPARISON: none TECHNIQUE: Helical CT of the abdomen and pelvis was performed without the administration of IV contrast. Axial, coronal and sagittal reformatted images were generated. ---PQRS compliance statement - One or more of the following individualized dose reduction techniques were utilized for this study: 1. Automated exposure control 2. Adjustment of the mA and/or kV according to patient size 3. Use of iterative reconstruction technique--- FINDINGS: Lack of intravenous contrast limits evaluation of solid organs, vasculature, and lymph nodes. Lower chest: Bandlike and confluent opacities in lower lungs may represent developing consolidation process such as pneumonia. Abdomen and pelvis: Liver and biliary system: No focal liver lesion. High density material dependently within the gallbladder likely sludge. No biliary duct dilatation. Spleen: Unremarkable Pancreas: Unremarkable Adrenal glands: Unremarkable Kidneys: Punctate nonobstructing right lower pole renal calculus. No focal renal lesion. No hydronephrosis. No hydroureter. Lymph nodes/retroperitoneum: No abdominal or pelvic lymphadenopathy. Vessels: Aorta is normal in caliber. Bowel/Peritoneal cavity: Appendix is normal. Moderate colonic stool content is seen. No small or large bowel dilatation. No bowel obstruction. Colonic diverticula are seen. No abdominal or pelvic ascites. Abdominal wall: Trace fat-containing periumbilical hernia is seen. Bladder: Bladder is unremarkable. Bones: Curvature of the thoracolumbar spine. Multilevel degenerative changes particularly lower lumbar spine. Partial sacralization of L5. Trace anterolisthesis of L3 and L4 and L4-L5. Small ribs are seen at T12. IMPRESSION: 1. High density material within the gallbladder likely sludge. 2. No bowel obstruction. 3. Bilateral lung base airspace opacities may represent consolidative process such as pneumonia. Atelectasis may also have similar appearance. Electronically signed by: Richi Hills MD (11/03/2019 10:06 AM) [facility]
[2019-11-03] MEDS ORDERED: POLYETHYLENE GLYCOL 3350 17 GM PACKET. PO PRN (10:15)
[2019-11-03] MEDS ORDERED: POLYETHYLENE GLYCOL 3350 17 GM PACKET. PO SCH (10:30)
[2019-11-03] MEDS: ENOXAPARIN 40 MG/0.4 ML SYRINGE. SQ SCH (11:09)
[2019-11-03 11:20] VITALS: BP 114/68
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
--- NOTE | 2019-11-03 13:31 | DISCH ---
DISCHARGE INSTRUCTIONS Condition on Discharge Condition on Discharge: Stable Activity After Discharge Activity Instructions for Disc: No restrictions Other activity instructions: Make sure to keep right extremity elevated and to immerse thumb in cold lucinda Lifting Instructions after Dis: No heavy lifting Exercise Instruction after Dis: Walk 15 min, 3 x per day Diet after Discharge Diet after Discharge: Regular Wound Incision Care Wound/Incision Care: Ice to area for comfort Follow-Up Follow up with: Follow-up with orthopedics Follow Up With: Follow-up with your PCP if you need more pain medication ALONSO CARRENO MD Nov 03, 2019 13:31
--- NOTE | 2019-11-03 13:42 | RAD ---
CT head and cervical spine without contrast History: Electrocution, headache on left side, neck pain Technique: Noncontrast CT imaging was performed of the head and cervical spine. Multiplanar reconstruction images are submitted. Exposure: One or more of the following individualized dose reduction techniques were utilized for this examination: 1. Automated exposure control 2. Adjustment of the mA and/or kV according to patient size 3. Use of iterative reconstruction technique. Head CT Comparison: None Findings: There is mild motion. No convincing acute extra-axial or parenchymal hemorrhage is identified. There is no significant intra-axial mass effect, midline shift, or extra-axial fluid collection. The nation-white differentiation of the major vascular territories is preserved. The ventricles, sulci, and cisterns are within normal limits in size and configuration. Mastoid air cells are aerated. There is patchy [id number] ethmoid air cell mucosal thickening.There is no significant focal calvarial abnormality. Impression: 1. Allowing for mild motion, no convincing acute intracranial abnormality is identified. Cervical spine CT Comparison: None Findings: No acute cervical spine fracture is identified. Vertebral body stature and AP alignment are within normal limits. [place]-axial distance is within normal limits. There is appropriate alignment of lateral masses of C1 relative to C2. Occipital condylar-C1 relationship is maintained. There is advanced degenerative disc disease C5-6 and C6-7, spondylosis also at these levels. There is mild spinal stenosis estimated about 9 mm at C5-6, likely borderline narrowing at C6-7. There is uncovertebral degenerative change bilaterally at C5-6 and C6-7. In combination with facet degenerative change, there is severe narrowing of the left C6-7 and right C5-6 neural foramina, minimal narrowing on the left at C5-6. There is mild levoscoliosis of the cervical spine. There is some atherosclerotic calcification of the left carotid artery in the neck. There is emphysema of the visualized lung apices. Impression: 1. No acute cervical spine fracture is identified. 2. There is advanced degenerative disc disease C5-6 and C6-7, also spondylosis at these levels. There is mild spinal stenosis at C5-6. 3. Facet and uncovertebral degenerative change contributes to more significant narrowing of the left C6-7 and right C5-6 neural foramina. Electronically signed by: Richi Rosario MD (11/03/2019 1:39 PM) [place] [id number]
[2019-11-03 15:23] VITALS: BP 115/75
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
--- NOTE | 2019-11-03 16:35 | NUR ---
SW following. Spoke with RN and CM. Pt from home. Pt is self-pay. Pt ready for discharge per Dr. Fritz. Spoke with RN and pt has script for Hydrocodone but is not discharging on any other mediations. Pt to discharge on room air. No further SW needs at this time.
--- NOTE | 2019-11-03 16:43 | NUR ---
Discharge Note: PT DISCHARGED HOME WITH SELF CARE. PT LEFT FACILITY VIA PRIVATE VEHICLE WITH FRIEND AT 1640. PT STABLE AND ALERT UPON DISCHARGE. PT PIV REMOVED FROM R AC WITHOUT COMPLICATIONS, BANDAGE APPLIED. PT EDUCATED ABOUT DISCHARGE INSTRUCTIONS, DISCHARGE MEDICATIONS, AND FOLLOW-UP CARE/APPOINTMENTS. PT EDUCATED ABOUT WOUND CARE INSTRUCTIONS TO FOLLOW-UP WITH [facility] WOUND CARE TEAM OR WOUND CARE TEAM, NO CONCERNS VOICED AT THIS TIME. PT LEFT WITH ALL PERSONAL BELONGINGS. [facility]UBALCA[facility] Discharge instructions and discharge home medications reviewed with Patient and a copy given. All questions have been answered and understanding verbalized.
[2019-11-07] MEDS ORDERED: MULTIVITAMIN with MINERAL TABLET. PO SCH (09:00)
[2019-11-07] MEDS ORDERED: THIAMINE 100 MG TABLET. PO SCH (09:00)
[2019-11-07] MEDS ORDERED: FOLIC ACID 1 MG TABLET. PO SCH (09:00)
== END 2019-11-03 16:45 | disposition home or self-care (01) | DRG 563 ==
LOC: ER 01:46 → ED HOLD 03:56 → 6 SOUTH 05:56 → 1 WEST ICU 07:51 → 6 SOUTH 17:10
PROVIDERS: ADMIT Internal Medicine; ATTEND Internal Medicine
PROC: 0PSDXZZ Reposition Left Humeral Head, External Approach (ICD-10-PCS; principal; 2019-11-02)
DX: S42.302A Unspecified fracture of shaft of humerus, left arm, initial encounter for closed fracture (principal); N39.0 Urinary tract infection, site not specified; T75.4XXA Electrocution, initial encounter; F12.90 Cannabis use, unspecified, uncomplicated; F15.10 Other stimulant abuse, uncomplicated; F17.210 Nicotine dependence, cigarettes, uncomplicated; K57.30 Diverticulosis of large intestine without perforation or abscess without bleeding; Y93.89 Activity, other specified; Y92.89 Other specified places as the place of occurrence of the external cause; Y99.8 Other external cause status; K21.9 Gastro-esophageal reflux disease without esophagitis; T23.039A Burn of unspecified degree of unspecified multiple fingers (nail), not including thumb, initial encounter; T23.011A Burn of unspecified degree of right thumb (nail), initial encounter; W86.8XXA Exposure to other electric current, initial encounter; Z82.49 Family history of ischemic heart disease and other diseases of the circulatory system; Z85.41 Personal history of malignant neoplasm of cervix uteri
CPT/HCPCS: 23650; 36415; 70450; 71045; 72125; 73030; 73140; 74176; 80053; 80307; 81001; 81025; 82550; 83874; 84484; 85025; 87086; 93005; 93306; 94640; 96361; 96374; 96375; 96376; 99285; 99406; G0238; G0480; J0696; J1170; J1650; J2060; J2270; J2405; J2704; J3411; J3490; J7030; 97110-GP; 97530-GO; G0378